=== PATIENT | male | born 1995 | race Caucasian/White ===

== ENCOUNTER 2016-11-24 14:38 | Emergency (ER) | payer OTHER ==
[2016-11-24 14:51] VITALS: BP 117/64
--- NOTE | 2016-11-24 15:39 | UC ---
Upper Extremity HPI - HPI Summary HPI Summary: 21 year old male with PMH + for R wrist fracture as child, presents after playing basketball at [employer], was hit in hand by another players hand, + pain, however continued to play. right knee pain after colliding with 2 other players, both on side of knee, no swelling, was seen by nurse on sidelines who thought knee was "Crooked". Patient was able to ambulate on knee afterwards however + for limp. no prior knee injuries. - History of Current Complaint Hx Obtained From: Patient, Family/Csr - girlfriend Onset/Duration: Sudden Onset, Lasting Minutes Severity Initially: Moderate Severity Currently: Moderate <Pascale Ariza - Last Filed: 11/24/16 16:09> <Leidy Thomas - Last Filed: 11/24/16 16:14> - History of Current Complaint Chief Complaint: UCUpperExtremity Stated Complaint: RIGHT HAND INJURY Time Seen by Provider: 11/24/16 15:15 - Allergies/Home Medications Allergies/Adverse Reactions: Allergies Allergy/AdvReac Type Severity Reaction Status Date / Time No Known Allergies Allergy Verified 11/24/16 14:51 PMH/Surg Hx/FS Hx/Imm Hx Previously Healthy: Yes - Surgical History Surgical History: Yes Surgery Procedure, Year, and Place: T&A, TUBES EARS - Social History Alcohol Use: Rare Substance Use Type: None Smoking Status (MU): Never Smoked Tobacco - Immunization History Vaccination Up to Date: Yes <Pascale Ariza - Last Filed: 11/24/16 16:09> Review of Systems Motor: Decreased ROM Musculoskeletal: Arthralgia, Decreased ROM, Myalgia Is Patient Immunocompromised?: No All Other Systems Reviewed And Are Negative: Yes <Pascale Ariza - Last Filed: 11/24/16 16:09> Physical Exam Triage Information Reviewed: Yes Appearance: Well-Appearing, No Pain Distress, Well-Nourished Vital Signs: Initial Vital Signs Temp 98.9 F 11/24/16 14:48 Pulse 96 11/24/16 14:48 Resp 16 11/24/16 14:48 BP 117/64 11/24/16 14:48 Pulse Ox 99 11/24/16 14:48 Musculoskeletal: Positive: ROM Limited @ - ROM R knee PROM 0-120 without pain, to 130 with mild pain/ tightness. minimal joint effusion appreciated, no ecchymosis, + antalgic gait, mild tenderness to deep palpation over LCL, none over MCL, nega ant/ post drawer, neg homans, achillies intact. + DF/PF sensatino grossly in tact to light touch. R hand- tenderness over 2-3 MCP, full ROM all fingers, weakness with flex/ extension 2, 3 fingers. both MCP, PIP , DIP joints. + mild swelling over 2,3rd mcps sensation intact, Rad, ulnar 2+ , full ROM, strength elbow, shoulder. Neurological: Positive: Alert, Muscle Tone Normal Psychological Exam: Normal Skin Exam: Normal <Pascale Ariza - Last Filed: 11/24/16 16:09> Vital Signs: Initial Vital Signs Temp 98.9 F 11/24/16 14:48 Pulse 96 11/24/16 14:48 Resp 16 11/24/16 14:48 BP 117/64 11/24/16 14:48 Pulse Ox 99 11/24/16 14:48 <Leidy Thomas - Last Filed: 11/24/16 16:14> Upper Extremity Course/Dx - Course Course Of Treatment: radiograph hand- neg for fx, knee with KAYLEY wrap, patient wakling improved to only mild limp, feels stable, follow up with orth oif no improvement within 2-3 days. Hand with kayley wrap, continue ice, elevate, no work note needed pt in agreement f/u with ortho is if no improvement within 2-3 days - Differential Dx/Diagnosis Differential Diagnosis/HQI/PQRI: Burn, Fracture (Open) Provider Diagnoses: right hand sprain, right knee sprain <Pascale Ariza - Last Filed: 11/24/16 16:09> Discharge <Pascale Ariza - Last Filed: 11/24/16 16:09> <Leidy Thomas - Last Filed: 11/24/16 16:14> - Discharge Plan Condition: Good Disposition: HOME Patient Education Materials: Knee Sprain (ED), Finger Sprain (ED) Referrals: Keegan Wren MD [Medical Doctor] - Corey Villavicencio MD [Primary Care Provider] - Additional Instructions: - Right knee- keep in KAYLEY wrap x 2 days for stability. INcrease rest, keep leg elevated, ICE. - Motrin as needed for pain - Follow up with orthopedics within 2-3 days if no improvement - Right Hand: Attestation Statement User Type: Provider - I was available for consult. This patient was seen by the VINNY. The patient was not presented to, seen by, or examined by me. -Susy <Leidy Thomas - Last Filed: 11/24/16 16:14>
--- NOTE | 2016-11-24 16:03 | RAD ---
INDICATION: RIGHT third metacarpal phalangeal joint region pain following injury. Pain with flexion and extension. COMPARISON: No relevant prior exams available on the [facility] for comparison. TECHNIQUE: AP and lateral views RIGHT hand. REPORT AND IMPRESSION: Soft tissue swelling over the dorsum of the hand at the level of the metacarpal phalangeal joints. Negative for fracture or malalignment.
== END 2016-11-24 16:15 | disposition home or self-care (01) ==
LOC: UCCORT 14:38
DX: S83.91XA Sprain of unspecified site of right knee, initial encounter (principal); S63.91XA Sprain of unspecified part of right wrist and hand, initial encounter; W51.XXXA Accidental striking against or bumped into by another person, initial encounter; Y93.89 Activity, other specified; Y92.9 Unspecified place or not applicable
CPT/HCPCS: 99202; G0463

== ENCOUNTER 2018-12-26 15:51 | Emergency (ER) | payer OTHER ==
[2018-12-26 16:39] VITALS: BP 128/71
--- NOTE | 2018-12-26 16:49 | UC ---
Complaint Male HPI - HPI Summary HPI Summary: 23-year-old male presents for reports of possible exposure to chlamydia. States he was recently notified by a sexual partner with whom he had unprotected sex this past September that she tested positive for chlamydia recently. Denies fever, chills, dysuria, frequency, urgency, penile discharge, penile lesions or ulcerations, testicular pain or swelling. - History of Current Complaint Chief Complaint: UCGU Stated Complaint: PERSONAL Time Seen by Provider: 12/26/18 16:43 Hx Obtained From: Patient Pain Intensity: 0 - Allergies/Home Medications Allergies/Adverse Reactions: Allergies Allergy/AdvReac Type Severity Reaction Status Date / Time No Known Allergies Allergy Verified 12/26/18 16:32 PMH/Surg Hx/FS Hx/Imm Hx Previously Healthy: Yes - Denies significant PMH - Surgical History Surgical History: Yes Surgery Procedure, Year, and Place: T&A, TUBES EARS. WISDOM TEETH EXTRACTIONS - Family History Known Family History: Positive: Non-Contributory - Social History Occupation: Student Lives: Dormitory/Roommates Alcohol Use: Occasionally Substance Use Type: Marijuana Substance Use Comment - Amount & Last Used: OCCASIONAL Smoking Status (MU): Never Smoked Tobacco Have You Smoked in the Last Year: No - Immunization History Vaccination Up to Date: Yes Review of Systems All Other Systems Reviewed And Are Negative: Yes Constitutional: Negative: Fever, Chills Skin: Negative: Rash Respiratory: Positive: Negative Cardiovascular: Positive: Negative Gastrointestinal: Positive: Negative Genitourinary: Negative: Dysuria, Hematuria, Frequency, Urgency, Vaginal/Penile Discharge, Ulceration/Lesion Musculoskeletal: Positive: Negative Neurological: Positive: Negative Is Patient Immunocompromised?: No Physical Exam - Summary Physical Exam Summary: GENERAL APPEARANCE: Well developed, well nourished, alert and cooperative, and appears to be in no acute distress. EYES: Conjunctiva clear. No drainage. EARS: External auditory canals and tympanic membranes clear, hearing grossly intact. NOSE: No nasal discharge. THROAT: Pharynx normal No tonsilar inflammation, swelling, exudate, or lesions. Uvula midline. Oral cavity normal. Teeth and gingiva in good general condition. NECK: Neck supple, non-tender without lymphadenopathy. CARDIAC: Normal S1 and S2. No S3, S4 or murmurs. Rhythm is regular. There is no peripheral edema, cyanosis or pallor. Extremities are warm and well perfused. Capillary refill is less than 2 seconds. Peripheral pulses intact. LUNGS: Clear to auscultation without rales, rhonchi, wheezing or diminished breath sounds. ABDOMEN: Positive bowel sounds. Soft, nondistended, nontender. No guarding or rebound. No masses or hepatosplenomegally. GENITOURINARY: Normal penis. No drainage, lesions, or ulcerations noted. No scrotal or testicular swelling or tenderness. MUSKULOSKELETAL: ROM intact to all extremities. No joint erythema or tenderness. Normal muscular development. Normal gait. SKIN: Skin normal color, texture and turgor with no lesions or eruptions. Triage Information Reviewed: Yes Vital Signs: Initial Vital Signs Temp 98.7 F 12/26/18 16:33 Pulse 83 12/26/18 16:33 Resp 15 12/26/18 16:33 BP 128/71 12/26/18 16:33 Pulse Ox 99 12/26/18 16:33 Vital Signs Reviewed: Yes Complaint Male Course/Dx - Course Course Of Treatment: 23-year-old male presents for reports of possible exposure to chlamydia. States he was recently notified by a sexual partner with whom he had unprotected sex this past September that she tested positive for chlamydia recently. Denies fever, chills, dysuria, frequency, urgency, penile discharge, penile lesions or ulcerations, testicular pain or swelling. Afebrile. Vital signs stable. Patient had an overall unremarkable exam. We discussed screening for STIs and the patient is requesting testing only for gonorrhea and chlamydia at this time. Patient was unable to provide a urine specimen after multiple attempts and declined having acute urethral swab performed therefore we will treat him for presumptive infection and have him follow-up with his primary care provider. He was given ceftriaxone 250 mg IM and azithromycin 1000 mg PO in the clinic. He was counseled to abstain from sexual intercourse for the next week as well as on safe sex practices. Anticipatory guidance and warning symptoms are reviewed with the patient. Verbalizes understanding and agrees with plan of care. - Differential Dx/Diagnosis Differential Diagnosis/HQI/PQRI: Urinary Tract Infection, Other - STI Provider Diagnosis: Exposure to sexually transmitted disease (STD) Discharge ED - Sign-Out/Discharge Documenting (check all that apply): Patient Departure All imaging exams completed and their final reports reviewed: No Studies - Discharge Plan Condition: Stable Disposition: HOME Patient Education Materials: Sexually Transmitted Diseases (ED), Safe Sex (ED) Referrals: No Primary Care Phys,NOPCP [Primary Care Provider] - Additional Instructions: Based on her history of possible exposure to chlamydia we will screen for both gonorrhea and chlamydia today. We have gone ahead and treated you for a possible infection with ceftriaxone 250 mg and azithromycin 1000 mg which should treat any infection for gonorrhea or chlamydia. You should abstain from sexual intercourse for the next week. Follow up with your primary care provider in 2 weeks for any concerns and/or follow up testing. - Billing Disposition and Condition Condition: STABLE Disposition: Home
[2018-12-26] MEDS ORDERED: Azithromycin TAB* 250 MG PO ONE (17:06)
[2018-12-26] MEDS ORDERED: cefTRIAXone VIAL(*) 250 MG VIAL IM ONE (17:06)
[2018-12-26] MEDS ORDERED: Lidocaine 1% MPF ** 5 ML VIAL IM ONE (17:06)
== END 2018-12-26 18:04 | disposition home or self-care (01) ==
LOC: UCCORT 15:51
DX: Z20.2 Contact with and (suspected) exposure to infections with a predominantly sexual mode of transmission (principal)
CPT/HCPCS: 96372; 99212; A9270-GY; G0463; J0696